=== PATIENT | male | born 1960 | race Caucasian/White ===

== ENCOUNTER 2023-08-21 22:07 | Emergency (ER) | payer OTHER ==
[~2023-08-21] VITALS: Ht 167.6 cm; Wt 80.7 kg
[2023-08-21 22:53] VITALS: BP_SYST 157; PULSE 72; RESP 18; TEMP 97.6; O2SAT 98
[2023-08-22] MEDS ORDERED: METOCLOPRAMIDE HCL 10 MG/2 ML VIAL IVP ONE (00:30)
[2023-08-22] MEDS ORDERED: KETOROLAC TROMETHAMINE 30 MG VIAL IVP ONE (00:30)
[2023-08-22] MEDS ORDERED: DIPHENHYDRAMINE INJ 50 MG/ML VIAL IVP ONE (00:30)
[2023-08-22] MEDS ORDERED: METOCLOPRAMIDE HCL 10 MG/2 ML VIAL ONE (00:37)
[2023-08-22 01:52] VITALS: BP_SYST 131; PULSE 60; RESP 16; TEMP 97.8; O2SAT 96
== END 2023-08-22 01:52 | disposition home or self-care (01) ==
LOC: SED 22:07
DX: R51.9 Headache, unspecified (principal); E11.9 Type 2 diabetes mellitus without complications; Z79.899 Other long term (current) drug therapy
CPT/HCPCS: 99285; 96374; 70450; 96375; 76376; J1200; J1885; J2765